=== PATIENT | male | born 1965 | race Two or more races ===

== ENCOUNTER 2020-03-11 16:52 | Emergency (ER) | payer MEDICAID ==
[~2020-03-11] VITALS: Ht 167.6 cm; Wt 93.0 kg
[2020-03-11] MEDS ORDERED: ACETAMINOPHEN ES 500 MG TABLET ONE (17:07)
--- NOTE | 2020-03-11 17:18 | NUR ---
BIBS FROM HOME TO ER BED 7. AAOX4. NOT IN RESP DISTRESS, BREATHING EVEN AND UNLABORED. AMBULATORY. CAME IN FOR FEELING SICK FOR THE PAST 5 DAYS. PER PT, HE IS HAVING GEN BODY ACHE. DENIES COUGHING BUT PT SOUNDS NASALLY CONGESTED. PT IS NOTED FEBRILE @ 101.3 UPON TRIAGE. PT REPORTS TAKING ADVIL THIS MORNING. PROVIDER WAS AT THE BEDSIDE FOR EVAL. ORDERS RECEIEVED NOTED AND CARRIED OUT. IV LINE ESTABLISHED ON L AC 18G. MEDICATED ORDERED
[2020-03-11] MEDS ORDERED: IV NS 0.9% 1,000 ML BAG IV ONE (17:30)
[2020-03-11] MEDS ORDERED: ACETAMINOPHEN ES 500 MG TABLET PO ONE (17:30)
--- NOTE | 2020-03-11 18:46 | NUR ---
Patient discharged to home in stable condition. Written and verbal after care instructions given. Patient verbalizes understanding of instruction.IV removed. Catheter intact and site benign. Pressure and 4x4 applied to site. No bleeding noted. Pt ambulatory with a steady gait
[2020-03-11 18:53] VITALS: BP 129/79
== END 2020-03-11 18:53 | disposition home or self-care (01) ==
LOC: ER 17:02
DX: U07.1 COVID-19 (principal); R00.0 Tachycardia, unspecified; R03.0 Elevated blood-pressure reading, without diagnosis of hypertension; F17.210 Nicotine dependence, cigarettes, uncomplicated
CPT/HCPCS: 71045; 87804; 96360; 99284; C9803; J7030; U0003

== ENCOUNTER 2020-03-16 04:31 | Emergency (ER) | payer MEDICAID ==
[~2020-03-16] VITALS: Ht 167.6 cm; Wt 102.1 kg
[2020-03-16 04:31] VITALS: BP 133/69
[2020-03-16] MEDS ORDERED: LORAZEPAM 1 MG TABLET ONE (04:51)
[2020-03-16] MEDS ORDERED: IBUPROFEN 400 MG TABLET ONE (04:52)
[2020-03-16] MEDS ORDERED: LORAZEPAM 1 MG TABLET PO ONE (05:00)
[2020-03-16] MEDS ORDERED: IBUPROFEN 400 MG TABLET PO ONE (05:00)
--- NOTE | 2020-03-16 05:01 | NUR ---
Patient discharged to home in stable condition. Written and verbal after care instructions given. Patient verbalizes understanding of instruction.
== END 2020-03-16 05:03 | disposition home or self-care (01) ==
LOC: ER 04:34
DX: F41.9 Anxiety disorder, unspecified (principal); U07.1 COVID-19; F17.200 Nicotine dependence, unspecified, uncomplicated

== ENCOUNTER 2021-12-23 10:21 | Emergency (ER) | payer MEDICAID ==
[~2021-12-23] VITALS: Ht 165.1 cm; Wt 113.4 kg
--- NOTE | 2021-12-23 10:41 | NUR ---
RIANA White FROM WORK SITE C/O R ARM PAIN S/P FALLING OFF OF A 10FT LADDER, HE WAS MIDAW AND STATED THE LADDER GAVE OUR AND HE FELL, DENIES LOC. PAIN WAS INITIALLY 10/10, WAS GIVEN 50MCG OF [employer]. AWAITING MD ORDERS.
--- NOTE | 2021-12-23 10:56 | NUR ---
X RAY AT BEDSIDE
[2021-12-23] MEDS ORDERED: HYDROCODONE/APAP 10/325MG TABLET PO ONE (12:00)
[2021-12-23] MEDS ORDERED: IBUPROFEN 600 MG TABLET PO ONE (12:00)
[2021-12-23] MEDS ORDERED: HYDROCODONE/APAP 10/325MG TABLET ONE (12:07)
[2021-12-23] MEDS ORDERED: IBUPROFEN 600 MG TABLET ONE (12:08)
[2021-12-23] MEDS ORDERED: HYDR-3972 PO (12:36)
[2021-12-23] MEDS ORDERED: IBUP-1955 PO (12:36)
[2021-12-23 13:09] VITALS: BP 126/72
--- NOTE | 2021-12-23 13:09 | NUR ---
Patient discharged to home in stable condition. Written and verbal after care instructions given. Patient verbalizes understanding of instruction. The patient is picked up by family member.
== END 2021-12-23 13:10 | disposition home or self-care (01) ==
LOC: ER 10:29
DX: S52.591A Other fractures of lower end of right radius, initial encounter for closed fracture (principal); F17.200 Nicotine dependence, unspecified, uncomplicated; W11.XXXA Fall on and from ladder, initial encounter; Y93.89 Activity, other specified; Y92.89 Other specified places as the place of occurrence of the external cause; Y99.0 Civilian activity done for income or pay
CPT/HCPCS: 73080-TC; 73090-TC; 73110

== ENCOUNTER 2022-07-15 15:00 | Inpatient (IN) | payer MEDICAID ==
[~2022-07-15] VITALS: Ht 170.2 cm; Wt 99.8 kg
[~2022-07-15 15:00] MED LIST: HYDR-3972 PO; IBUP-1955 PO
[2022-07-15 16:26] LABS: BASOPHILS % (AUTO) 0.2 % (0.0-2.0); EOSINOPHILS % (AUTO) 0.4 % (0.0-6.0); HEMATOCRIT 39 % (39-51); HEMOGLOBIN 12.7 g/dL (13.5-17.5); LYMPHOCYTES % (AUTO) 8.2 % (20.0-44.0); MEAN CORPUSCULAR HGB CONC 33 g/dl (31.0-36.0); MEAN CORPUSCULAR VOLUME 91 fL (80-96); MONOCYTES # (AUTO) 0.6 K/uL (0.1-1.30); MONOCYTES % (AUTO) 4.9 % (2.0-12.0); NEUTROPHILS # (AUTO) 10.8 K/uL (1.8-8.9); NEUTROPHILS % (AUTO) 86.3 % (43.0-81.0); PLATELET COUNT (AUTO) 399 K/uL (150-450); RED BLOOD CELL COUNT(AUTO) 4.26 MIL/uL (4.5-6.0); WHITE BLOOD COUNT (AUTO) 12.5 K/uL (4.3-11.0)
[2022-07-15] MEDS ORDERED: IV NS 0.9% 1,000 ML BAG IV ONE ×2 (16:30→17:00)
[2022-07-15 16:38] LABS: CALCIUM, SERUM 9.2 mg/dL (8.5-10.1); CARBON DIOXIDE 23 mmol/L (21-32); CHLORIDE 104 mmol/L (98-107); CREATININE 1.5 mg/dL (0.6-1.3); GLUCOSE 186 mg/dL (74-106); SODIUM SERUM 137 mmol/L (136-145); UREA NITROGEN, BLOOD 16 mg/dL (7-18)
[2022-07-15 16:51] LABS: ALANINE AMINOTRANSFERASE 36 U/L (12-78); ALBUMIN 2.3 g/dL (3.4-5.0); ALKALINE PHOSPHATASE 141 U/L (46-116); ASPARTATE AMINOTRANSFERASE 21 U/L (15-37); BILIRUBIN,DIRECT 0.3 mg/dL (0.0-0.2); BILIRUBIN,TOTAL 0.4 mg/dL (0.2-1.0); TOTAL PROTEIN, SERUM 8.1 g/dL (6.4-8.2)
[2022-07-15] MEDS ORDERED: CEFTRIAXONE 1GM BAG (ER ONLY) 50 ML IV ONE ×2 (17:00→17:04)
[2022-07-15] MEDS ORDERED: AZITHROMYCIN 500 MG in IV D5W 250 ML IV ONE (17:00)
[2022-07-15 17:07] LABS: BILIRUBIN,URINE NEGATIVE (NEGATIVE); COLOR,URINE YELLOW (YELLOW); LEUKOCYTE ESTERASE ,URINE NEGATIVE (NEGATIVE); NITRITE, URINE NEGATIVE (NEGATIVE); PROTEIN,URINE 2+ mg/dl (NEGATIVE); UGLUCOSE NEGATIVE (NEGATIVE)
[2022-07-15 18:01] LABS: BACTERIA,URINE None seen /HPF (None Seen); SQUAMOUS EPITHELIAL CELL,UR 0-2 /HPF (None Seen); WBC,URINE 0-2 /HPF (0-3)
[2022-07-15] MEDS ORDERED: ONDANSETRON HCL/PF 4 MG/2 ML VIAL IVP PRN (18:30)
[2022-07-15] MEDS ORDERED: IV NS 0.9% 1,000 ML IV PRN (18:30)
[2022-07-15] MEDS ORDERED: MORPHINE SULFATE INJ 2 MG/ML DISP.SYRIN IV PRN (18:30)
[2022-07-15] MEDS ORDERED: MORPHINE SULFATE INJ 2 MG/ML DISP.SYRIN ONE (18:51)
[2022-07-15] MEDS ORDERED: ALBUTEROL FS 2.5 MG/0.5 ML VIAL.NEB NEB PRN (19:00)
[2022-07-15 19:30] VITALS: BP 149/90
[2022-07-15] MEDS: IV NS 0.9% 1,000 ML IV SCH (20:04)
[2022-07-15] MEDS: ACETAMINOPHEN 325 MG TABLET PO PRN (20:05)
[2022-07-15] MEDS: CEFEPIME 2 GM in IV D5W 100 ML IV SCH (20:24)
[2022-07-15] MEDS ORDERED: OXYMETAZOLINE HCL NASAL SPRAY 30 ML BOTTLE NS PRN (20:30)
[2022-07-15] MEDS ORDERED: TEMAZEPAM 7.5 MG CAPSULE PO PRN (21:30)
[2022-07-15] MEDS: GUAIFENESIN/D-METHORPHAN HB 5 ML UDC PO PRN (21:36)
[2022-07-16] VITALS: BP 119/58
[2022-07-16] MEDS: ACETAMINOPHEN 325 MG TABLET PO PRN ×4 (03:22→21:29)
[2022-07-16 04:00] VITALS: BP 141/76
[2022-07-16 06:39] LABS: BASOPHILS % (AUTO) 0.3 % (0.0-2.0); EOSINOPHILS % (AUTO) 0.3 % (0.0-6.0); HEMATOCRIT 33 % (39-51); LYMPHOCYTES # (AUTO) 1.5 K/uL (0.8-4.8); LYMPHOCYTES % (AUTO) 15.2 % (20.0-44.0); MEAN CORPUSCULAR HGB CONC 33 g/dl (31.0-36.0); MEAN CORPUSCULAR VOLUME 90 fL (80-96); MONOCYTES # (AUTO) 0.6 K/uL (0.1-1.30); MONOCYTES % (AUTO) 6.2 % (2.0-12.0); NEUTROPHILS # (AUTO) 7.6 K/uL (1.8-8.9); PLATELET COUNT (AUTO) 343 K/uL (150-450); RED BLOOD CELL COUNT(AUTO) 3.69 MIL/uL (4.5-6.0); WHITE BLOOD COUNT (AUTO) 9.7 K/uL (4.3-11.0)
[2022-07-16 06:57] LABS: ALBUMIN 1.8 g/dL (3.4-5.0); BILIRUBIN,TOTAL 0.6 mg/dL (0.2-1.0); CALCIUM, SERUM 8.4 mg/dL (8.5-10.1); CREATININE 1.2 mg/dL (0.6-1.3); PHOSPHORUS 3.7 mg/dL (2.5-4.9); POTASSIUM 3.2 mmol/L (3.5-5.1); TOTAL PROTEIN, SERUM 6.8 g/dL (6.4-8.2)
[2022-07-16 08:00] VITALS: BP 135/84
[2022-07-16] MEDS: CEFEPIME 2 GM in IV D5W 100 ML IV SCH ×2 (08:41→20:11)
[2022-07-16] MEDS: IV NS 0.9% 1,000 ML IV SCH (08:41)
[2022-07-16] MEDS ORDERED: POTASSIUM CHLORIDE 20 MEQ TAB.PRT.SR PO SCH (09:00)
[2022-07-16] MEDS ORDERED: DEXTROSE 50%-WATER 50 ML DISP.SYRIN IV PRN (09:00)
[2022-07-16] MEDS: BLOOD SUGAR DIAGNOSTIC 1 EACH STRIP IN SCH ×4 (09:07→22:00)
[2022-07-16] MEDS: LEVOFLOXACIN 750 MG /D5W 150ML 150 ML IV SCH (10:54)
[2022-07-16 12:00] VITALS: BP 141/71
[2022-07-16] MEDS: INSULIN REGULAR, HUMAN 100 UNIT/ML 3 ML VIAL SQ PRN ×2 (13:05→17:35)
[2022-07-16] MEDS: GUAIFENESIN/D-METHORPHAN HB 5 ML UDC PO PRN ×2 (15:55→21:28)
[2022-07-16 16:00] VITALS: BP 150/80
[2022-07-16 20:00] VITALS: BP 144/67
[2022-07-16 22:51] LABS: BILIRUBIN,URINE NEGATIVE (NEGATIVE); COLOR,URINE YELLOW (YELLOW); LEUKOCYTE ESTERASE ,URINE NEGATIVE (NEGATIVE); NITRITE, URINE NEGATIVE (NEGATIVE); PROTEIN,URINE TRACE mg/dl (NEGATIVE); UGLUCOSE NEGATIVE (NEGATIVE)
[2022-07-16] MEDS: oxyCODONE/APAP (5/325 MG) 1 UDTAB TABLET PO PRN (22:55)
[2022-07-16 22:56] LABS: BACTERIA,URINE Rare /HPF (None Seen); RBC,URINE 0-2 /HPF (0-2); SQUAMOUS EPITHELIAL CELL,UR Few /HPF (None Seen)
[2022-07-17] VITALS: BP 136/81
[2022-07-17] MEDS: INSULIN REGULAR, HUMAN 100 UNIT/ML 3 ML VIAL SQ PRN (00:22)
[2022-07-17] MEDS: IV NS 0.9% 1,000 ML IV SCH ×2 (00:44→11:50)
[2022-07-17 04:00] VITALS: BP 130/80
[2022-07-17] MEDS: oxyCODONE/APAP (5/325 MG) 1 UDTAB TABLET PO PRN (05:02)
[2022-07-17] MEDS: BLOOD SUGAR DIAGNOSTIC 1 EACH STRIP IN SCH ×2 (07:37→12:09)
[2022-07-17 08:00] VITALS: BP 136/80
[2022-07-17] MEDS: CEFEPIME 2 GM in IV D5W 100 ML IV SCH (08:22)
[2022-07-17] MEDS ORDERED: LEVO750T46 PO (08:39)
[2022-07-17] MEDS ORDERED: METF-442 PO (08:39)
[2022-07-17] MEDS: LEVOFLOXACIN 750 MG /D5W 150ML 150 ML IV SCH (10:41)
[2022-07-17 12:00] VITALS: BP 128/78
[2022-07-20 21:06] LABS: *MYCOPLASMA PNEUMONIAE IgG <100 U/mL (0-99); *MYCOPLASMA PNEUMONIAE IgM <770 U/mL (0-769)
== END 2022-07-17 14:30 | disposition home or self-care (01) | DRG 720 ==
LOC: ER 15:03 → TELE1 18:25
PROVIDERS: ADMIT Internal Medicine; ATTEND Internal Medicine
DX: A41.9 Sepsis, unspecified organism (principal); N17.0 Acute kidney failure with tubular necrosis; E44.1 Mild protein-calorie malnutrition; J15.6 Pneumonia due to other Gram-negative bacteria; E88.09 Other disorders of plasma-protein metabolism, not elsewhere classified; E11.65 Type 2 diabetes mellitus with hyperglycemia; D64.9 Anemia, unspecified; E66.9 Obesity, unspecified; F17.210 Nicotine dependence, cigarettes, uncomplicated; Z20.822 Contact with and (suspected) exposure to COVID-19; I10 Essential (primary) hypertension; G47.33 Obstructive sleep apnea (adult) (pediatric); Z68.34 Body mass index [BMI] 34.0-34.9, adult; E87.6 Hypokalemia; Z71.6 Tobacco abuse counseling
CPT/HCPCS: 36415; 71045-TC; 73564-TC; 80048-TC; 80053-TC; 80076-TC; 81001; 82962-TC; 83605-TC; 83735-TC; 84100-TC; 84484-TC; 85025-TC; 85730-TC; 86713; 86738; 87040-TC; 87081-TC; 87086-TC; 87449; A4223; C9803; G0378; J0456; J0692; J0696; J1815; J1956; J2270; J7030; J7060

== ENCOUNTER 2022-09-01 16:37 | Emergency (ER) | payer MEDICAID ==
[~2022-09-01] VITALS: Ht 167.6 cm; Wt 99.8 kg
[~2022-09-01 16:37] MED LIST changes: +LEVO750T46 PO; +METF-442 PO
[2022-09-01 16:56] VITALS: BP 131/97
[2022-09-01] MEDS ORDERED: IBUP-1955 PO (18:37)
[2022-09-01] MEDS ORDERED: IBUPROFEN 600 MG TABLET ONE (18:47)
[2022-09-01] MEDS ORDERED: IBUPROFEN 600 MG TABLET PO ONE (19:00)
== END 2022-09-01 18:53 | disposition home or self-care (01) ==
LOC: ER 16:38
DX: M17.12 Unilateral primary osteoarthritis, left knee (principal); F17.200 Nicotine dependence, unspecified, uncomplicated; Z79.899 Other long term (current) drug therapy
CPT/HCPCS: 73564-TC

== ENCOUNTER 2024-11-28 18:13 | Emergency (ER) | payer SELFPAY ==
[~2024-11-28] VITALS: Ht 165.1 cm; Wt 88.0 kg
[2024-11-28] MEDS: IV NS 0.9% 1,000 ML BAG IV ONE (18:53)
[2024-11-28 19:04] LABS: PLATELET COUNT (AUTO) 271 K/uL (150-450); RED BLOOD CELL COUNT(AUTO) 4.66 MIL/uL (4.5-6.0); RED CELL DISTRIBUTION WIDTH 14.3 % (11.5-15.0); WHITE BLOOD COUNT (AUTO) 7.0 K/uL (4.3-11.0)
[2024-11-28 19:11] LABS: CALCIUM, SERUM 8.9 mg/dL (8.5-10.1); CREATININE 1.1 mg/dL (0.6-1.3); SODIUM SERUM 140.0 mmol/L (136-145); UREA NITROGEN, BLOOD 10.0 mg/dL (7-18)
[2024-11-28 19:18] LABS: ASPARTATE AMINOTRANSFERASE 13.0 U/L (15-37); TOTAL PROTEIN, SERUM 6.9 g/dL (6.4-8.2)
[2024-11-28 19:40] LABS: APPEARANCE,URINE CLEAR (CLEAR); BLOOD, URINE Moderate Ery/uL (NEGATIVE); LEUKOCYTE ESTERASE ,URINE Negative (NEGATIVE); UGLUCOSE Negative (NEGATIVE)
[2024-11-28 19:43] LABS: ADD URINE CULTURE NO; NITRITE, URINE NEGATIVE (NEGATIVE); SQUAMOUS EPITHELIAL CELL,UR None Seen /HPF (None Seen)
[2024-11-28 19:44] LABS: HYALINE CASTS, URINE Rare /LPF (None Seen)
[2024-11-28 20:12] VITALS: BP 128/82; TEMP 97.9; O2SAT 98
== END 2024-11-28 20:12 | disposition home or self-care (01) ==
LOC: ER 18:23
DX: R53.1 Weakness (principal); R53.83 Other fatigue; F17.200 Nicotine dependence, unspecified, uncomplicated; I10 Essential (primary) hypertension; Z79.1 Long term (current) use of non-steroidal anti-inflammatories (NSAID); Z79.84 Long term (current) use of oral hypoglycemic drugs
CPT/HCPCS: 99284; 96360; 93005; 85025; 80048; 83690; 80076; 81001; 36415; J7030; 87086-TC